=== PATIENT | male | born 1970 | race Hispanic/Latino ===

== ENCOUNTER 2019-03-24 20:58 | Emergency (ER) | payer OTHER | END 2019-03-24 21:27 | disposition home or self-care (01) | LOC: EDH 20:58 | DX: L40.9 Psoriasis, unspecified (principal); M19.90 Unspecified osteoarthritis, unspecified site; E07.9 Disorder of thyroid, unspecified | CPT/HCPCS: 99281 ==

== ENCOUNTER 2023-04-08 15:31 | Emergency (ER) | payer BC ==
[~2023-04-08] VITALS: Ht 177.8 cm; Wt 127.9 kg
[2023-04-08 16:02] VITALS: BP 140/84; PULSE 18; RESP 18
[2023-04-08] MEDS ORDERED: CLIN-141 PO (18:29)
[2023-04-08] MEDS ORDERED: LIDOCAINE HCL 1% 20 ML VIAL INJ SCH (18:30)
[2023-04-08] MEDS ORDERED: CLINDAMYCIN 150 MG CAP PO ONE (18:30)
== END 2023-04-08 19:40 | disposition home or self-care (01) ==
LOC: EDH 15:31
DX: L03.012 Cellulitis of left finger (principal); E11.9 Type 2 diabetes mellitus without complications; I10 Essential (primary) hypertension
CPT/HCPCS: 10060

== ENCOUNTER 2025-07-06 21:54 | Emergency (ER) | payer BC ==
[~2025-07-06] VITALS: Ht 177.8 cm; Wt 120.7 kg
[~2025-07-06 21:54] MED LIST: CLIN-141 PO
--- NOTE | 2025-07-06 22:52 | HMCIMG ---
EXAM: CT Abdomen and Pelvis Without IV contrast CLINICAL HISTORY: flank pain TECHNIQUE: Axial computed tomography images of the abdomen and pelvis without intravenous contrast. CONTRAST: No IV contrast. COMPARISON: None provided. FINDINGS: LUNG BASES: The lung bases appear clear. No pleural effusions are seen. LIVER: Unremarkable. GALLBLADDER AND BILE DUCTS: Gallbladder could not be seen possibly removed PANCREAS: Unremarkable. SPLEEN: Unremarkable. ADRENAL GLANDS: Unremarkable. KIDNEYS, URETERS, AND BLADDER: The kidneys appear within normal limits. There is no hydronephrosis or hydroureter. Punctate calculi within the left kidney. STOMACH AND BOWEL: Unremarkable appearance of the stomach and bowel. No evidence of bowel obstruction. No evidence suggesting enteritis or colitis. Diverticulosis of the descending and sigmoid colon. APPENDIX: No evidence of acute appendicitis on CT examination. PERITONEUM: No free fluid. No free air. LYMPH NODES: No lymphadenopathy is evident. REPRODUCTIVE: Unremarkable as visualized. VASCULATURE: No evidence of abdominal aortic aneurysm. BONES: No aggressive appearing osseous lesion. No acute osseous pathology evident. IMPRESSION: No acute intra-abdominal or pelvic abnormality. /[place]
[2025-07-06 22:53] LABS: APPEARANCE,URINE CLEAR (CLEAR); GLUCOSE, URINE (UA) 30 mg/dL (NEGATIVE); LEUKOCYTE ESTERASE ,URINE NEGATIVE Leu/uL (NEGATIVE); NITRATE,URINE NEGATIVE (NEGATIVE); OCCULT BLOOD,URINE NEGATIVE (NEGATIVE); SQUAMOUS EPITHELIAL CELL,UR RARE /HPF (0-2)
[2025-07-06 23:08] LABS: IMMATURE GRANULOCYTE ABSOLUTE 0.04 K/uL (0-1); NUCLEATED RED BLOOD CELLS 0.0 % (0.0-0.19); PLATELET COUNT (AUTO) 326 K/uL (130-400); RED BLOOD CELL COUNT(AUTO) 4.39 MIL/uL (4.50-6.20); RED CELL DISTRIBUTION WIDTH 13.2 % (11.0-15.5); WHITE BLOOD COUNT (AUTO) 7.9 K/uL (4.8-10.8)
[2025-07-06 23:15] LABS: CREATININE 0.9 mg/dL (0.5-1.3); GLOMERULAR FILTR. RATE CALC 102.0 mL/min (>90); GLUCOSE,RANDOM 209.0 mg/dL (70-105); SODIUM SERUM 139.0 mmol/L (136-145); UREA NITROGEN, BLOOD 20.0 mg/dL (7-18)
[2025-07-06] MEDS ORDERED: NYST15CR TP (23:27)
[2025-07-06] MEDS ORDERED: PRED20TA3 PO (23:27)
--- NOTE | 2025-07-06 23:28 | ERN ---
ED Note History of Present Illness Stated Complaint: C/O LOWER BACK PAIN W/ PAIN WHEN VOIDING Chief Complaint: Painful Urination Time Seen by MD: 21:58 Time Seen by Midlevel: 21:58 Dictation: The patient is a 54-year-old male with history of DM, htn, psoriasis, hypothyroid who presents to the emergency department with complains of painful urination and non traumatic bilateral flank pain onset 2 weeks ago. Patient also reports worsening erythema to his groin and scrotum. Reports he had erythema for years due to his psoriasis. Denies any fever. Allergies: Coded Allergies: aloe vera (Unverified Allergy, Unknown, 04/08/23) Home Meds Active Scripts Nystatin/Triamcin (Nystatin-Triamcinolone Cream) 100,000 Unit/Gram-0.1 % Crm, 1 APPL TP BID for 10 Days, #15 GM 0 Refills apply to affected area(s) Prov:NATALI RODRIGUEZ ANALYTICAL TECH 07/06/25 Prednisone (Prednisone) 20 Mg Tablet, 1 TAB PO BID for 5 Days, #10 TAB 0 Refills Prov:NATALI RODRIGUEZ ANALYTICAL TECH 07/06/25 Clindamycin HCl (Clindamycin HCl) 300 Mg Capsule, 1 CAP PO [id number] for 7 Days, #28 CAP 0 Refills Prov:DIMAS AMATO NP 04/08/23 Past Medical History Past Medical History: Arthritis, Diabetes-Type II, High Cholesterol, Hypertension, Hypothyroid Surgical History: Other Surgical History Other: ANKLE RN Note Reviewed/Agreed w/PFSH: Yes Review of System Dictation Constitutional: Negative for fever,chills, and weight loss Eyes: Negative for injury, pain,redness, and discharge ENT: Negative for injury,pain or swelling Cardiovascular: Negative for chest pain, palpitations, and edema Respiratory: Negative for shortness of breath, cough, and wheezing, Abdomen/GI: Negative for abdominal pain, nausea, vomiting, diarrhea, and constipation Back: Negative for injury and pain Positive for flank pain : Negative for injury, bleeding and discharge Positive for painful urination. MS/Extremity: Negative for injury and deformity Skin: Negative for rash, and discoloration Neuro: Negative for headache, weakness, numbness, tingling, and seizure Psych: Negative for suicide ideation, homicidal ideation, and hallucinations Initial Vital Sign VS Vital Signs Date Time Temp Pulse Resp B/P (MAP) Pulse Ox O2 Delivery O2 Flow Rate FiO2 07/06/25 21:56 97.3 98 20 140/74 98 Room Air 07/06/25 22:18 0 21 Physical Exam Dictation Vital Signs reviewed General Appearance: Alert, oriented x 3, no acute distress, well developed, nourished. Head and Face: non-traumatic. Eyes: PERRL, pink conjunctivas, eyelid no trauma, anterior chamber with arcus senilis. Ears: Pinnas intact and no signs of trauma or erythema ear canals clear and no discharge TM no erythema Nose: No discharge, no bleeding. Oropharynx: Mouth normal, tongue pink. pharynx clear,no erythema, tonsils no exudates, no abscesses noted, mucous membrane moist Neck: Supple, non-tender, no thyromegaly, no masses, no JVD, no bruits Breast:Deferred Chest:No tenderness, no crepitus, no paradoxical movement, no retractions Lungs:Clear, well-ventilated, symmetric, no rales, no wheezing, no rhonchi, no stridor, good breath sounds bilaterally Heart: Regular rate, regular rhythm, no murmur, no gallops Vascular: no peripheral edema, Abdomen: Soft, positive bowel sounds, nondistended, no guarding, nontender, no rebound, no masses no hepatomegaly, no splenomegaly, no Rojo's sign, no hernias. Rectal: Deferred Genital: Deferred Neurological: Normal speech, motor function intact, sensory function intact Musculoskeletal: Neck nontender, full range of motion, back nontender, full ra nge of motion, Extremities: nontender, full range of motion Skin: Color pink, dry, no turgor, no rash, no lacerations, no abrasions, no contusions.erythema and dry patches to groin, erythema to scrotum, no drainage Lymphatic: Deferred Results (Laboratory/Radiology) Laboratory/Radiology Laboratory Tests Test 07/06/25 20:08 07/06/25 22:15 Urine Color LIGHT-YELLOW (YELLOW) Urine Appearance CLEAR (CLEAR) Urine pH 5.0 (5.0-8.0) Urine Specific [place] 1.021 (1.001-1.031) Urine Protein NEGATIVE mg/dL (NEGATIVE) Urine Glucose (UA) 30 mg/dL (NEGATIVE) H Urine Ketones NEGATIVE mg/dL (NEGATIVE) Urine Occult Blood NEGATIVE (NEGATIVE) Urine Nitrate NEGATIVE (NEGATIVE) Urine Bilirubin NEGATIVE mg/dL (NEGATIVE) Urine Urobilinogen 0.2 mg/dL (0.2-1.0) Urine Leukocyte Esterase NEGATIVE Vicki/uL Urine RBC 0-1 /HPF (0-1) Urine WBC 0-1 /HPF (0-1) Urine Squamous Epithelial Cells RARE /HPF (0-2) Urine Bacteria None /HPF (None Seen) White Blood Count 7.9 K/uL (4.8-10.8) Red Blood Count 4.39 MIL/uL (4.50-6.20) L Hemoglobin 12.5 g/dL (14.0-18.0) L Hematocrit 38.0 % (42-54) L Mean Corpuscular Volume 86.6 fL (79-99) Mean Corpuscular Hemoglobin 28.5 pg (27.0-33.0) Mean Corpuscular Hemoglobin Concent 32.9 g/dL (32.0-36.0) Red Cell Distribution Width 13.2 % (11.0-15.5) Platelet Count 326 K/uL (130-400) Mean Platelet Volume 9.6 fL (7.5-10.5) Immature Granulocyte % (Auto) 0.5 % (0-1) Neutrophils (%) (Auto) 66.4 % (40.0-77.0) Lymphocytes (%) (Auto) 22.0 % (21.0-51.0) Monocytes (%) (Auto) 7.1 % (3.0-13.0) Eosinophils (%) (Auto) 3.4 % (0.0-8.0) Basophils (%) (Auto) 0.6 % (0.0-5.0) Neutrophils # (Auto) 5.2 K/uL (1.8-7.7) Lymphocytes # (Auto) 1.7 K/uL (1.0-4.8) Monocytes # (Auto) 0.6 K/uL (0.1-1.0) Eosinophils # (Auto) 0.27 K/uL (0.00-0.70) Basophils # (Auto) 0.05 K/uL (0.00-0.20) Absolute Immature Granulocyte (auto 0.04 K/uL (0-1) Nucleated Red Blood Cells 0.0 % (0.0-0.19) Sodium Level 139 mmol/L (136-145) Potassium Level 3.9 mmol/L (3.5-5.1) Chloride Level 103 mmol/L (101-111) Carbon Dioxide Level 30 mmol/L (21-32) Blood Urea Nitrogen 20 mg/dL (7-18) H Creatinine 0.9 mg/dL (0.5-1.3) Glomerular Filtration Rate Calc 102 mL/min (>90) Random Glucose 209 mg/dL (70-105) H Total Calcium 8.5 mg/dL (8.5-10.1) REASON: flank pain ORDERING PHYSICIAN: NATALI RODRIGUEZ PROCEDURE: ABD PEL WO - CT ABDOMEN/PELVIS W/O CONTRAST EXAM: CT Abdomen and Pelvis Without IV contrast CLINICAL HISTORY: flank pain TECHNIQUE: Axial computed tomography images of the abdomen and pelvis without intravenous contrast. CONTRAST: No IV contrast. COMPARISON: None provided. FINDINGS: LUNG BASES: The lung bases appear clear. No pleural effusions are seen. LIVER: Unremarkable. GALLBLADDER AND BILE DUCTS: Gallbladder could not be seen possibly removed PANCREAS: Unremarkable. SPLEEN: Unremarkable. ADRENAL GLANDS: Unremarkable. KIDNEYS, URETERS, AND BLADDER: The kidneys appear within normal limits. There is no hydronephrosis or hydroureter. Punctate calculi within the left kidney. STOMACH AND BOWEL: Unremarkable appearance of the stomach and bowel. No evidence of bowel obstruction. No evidence suggesting enteritis or colitis. Diverticulosis of the descending and sigmoid colon. APPENDIX: No evidence of acute appendicitis on CT examination. PERITONEUM: No free fluid. No free air. LYMPH NODES: No lymphadenopathy is evident. REPRODUCTIVE: Unremarkable as visualized. VASCULATURE: No evidence of abdominal aortic aneurysm. BONES: No aggressive appearing osseous lesion. No acute osseous pathology evident. IMPRESSION: No acute intra-abdominal or pelvic abnormality. /[facility] Labs Reviewed?: Yes ED Course ED Course Orders Procedure Category Date Status Time Cbc With Differential LAB 07/06/25 Complete 22:11 Basic Metabolic Panel LAB 07/06/25 Complete 22:11 Ct Abdomen/Pelvis W/O CT 07/06/25 Resulted Contrast 22:23 Ketorolac PHA 07/06/25 Complete Tromethamine 30mg/Ml 22:30 Urinalysis LAB 07/06/25 Complete W/Microscopic 20:08 Methylprednisolone PHA 07/07/25 In Process Succ 125mg (Solu-Medr 00:00 Current Medications Medications (Trade) Dose Ordered Sig/[place] Route PRN Reason Start Time Stop Time Status Last Admin Dose Admin Ketorolac Tromethamine (toRADol) 30 mg ONCE ONCE IM 07/06/25 22:30 07/06/25 22:31 DC 07/06/25 22:56 Methylprednisolone Sodium Succinate (Solu-medROL 125MG) 80 mg ONCE ONCE IVP 07/07/25 00:00 07/07/25 00:01 07/06/25 23:49 Vital Signs Date Time Temp Pulse Resp B/P (MAP) Pulse Ox O2 Delivery O2 Flow Rate FiO2 07/06/25 22:18 98.8 76 18 144/84 96 Room Air* 0 21 07/06/25 21:56 97.3 98 20 140/74 98 Room Air Medical Decision Making MDM The patient is a 54-year-old male with history of DM, htn, psoriasis, hypothyroid who presents to the emergency department with complains of painful urination and non traumatic bilateral flank pain onset 2 weeks ago. Patient also reports worsening erythema to his groin and scrotum. Reports he had erythema for years due to his psoriasis. Denies any fever. CBC showed no leukocytosis, mild normocytic anemia, chemistry showed glucose of two nine, normal renal function, urinalysis negative for leukocyte esterase and nitrites. CT abdomen showed the puncture calculi in the left kidney. On physical exam patient has erythema to scrotum but no drainage. Patient also has erythema to groin with dryness. He reports that hes had it for year because he has psoriasis but it if getting worst. Does not follow with specialist. Patient will be discharge to follow up with and given steroids and cream. Patient otherwise in no acute distress, nontoxic appearance, stable vital signs. Differential diagnosis: UTI, pyelonephritis, chronic kidney injury, excoriation Need for hospitalization: Patient does not meet criteria for hospitalization. There are no social concerns with this patient. DX & DISP Disposition: Discharge Departure Impression: Primary Impression: Rash of groin Additional Impressions: Flank pain, Scrotal rash Condition: Stable Scripts Nystatin/Triamcin (Nystatin-Triamcinolone Cream) 100,000 Unit/Gram-0.1 % Crm 1 APPL TP BID for 10 Days, #15 GM 0 Refills apply to affected area(s) Prov: NATALI RODRIGUEZ RANDALL 07/06/25 Prednisone (Prednisone) 20 Mg Tablet 1 TAB PO BID for 5 Days, #10 TAB 0 Refills Prov: NATALI RODRIGUEZ RNADALL 07/06/25 Additional Instructions: Bandar laboratorios y tomografia no enseno nada emergente. Le vamos a recetar medicamentos para que se coloque en el area afectada. tome bandar medicamentos y siga de segimiento con chaudhary doctor de cabezera. Tambien le dimos kelly referencia a un especialista llamado . Able para hacer kelly marilyn. Si algo empeora regrese a emergencia. Referrals: HENOK MOLINA MD (PCP) JOEY OVERTON MD Time of Disposition: 23:46 I have examined patient, & reviewed all documents, & agreed W/ the Diagnosis, and Plan I performed a substantive portion of the visit. I have reviewed and personally made and approve the management plan that is documented in the notes by myself with JARED/resident. I acknowledged full responsibility for the patient's management plan. NATALI RODRIGUEZ RANDALL Jul 06, 2025 23:27 RONAK LERMA DO Jul 06, 2025 23:57
[2025-07-07 00:20] VITALS: BP 132/82; PULSE 72; RESP 18; TEMP 98.6; O2SAT 98
== END 2025-07-07 00:21 | disposition home or self-care (01) ==
LOC: EDH 21:54
DX: R10.A3 Flank pain, bilateral (principal); M19.90 Unspecified osteoarthritis, unspecified site; I10 Essential (primary) hypertension; E78.00 Pure hypercholesterolemia, unspecified; E11.9 Type 2 diabetes mellitus without complications; E03.9 Hypothyroidism, unspecified; Z79.52 Long term (current) use of systemic steroids; R21 Rash and other nonspecific skin eruption
CPT/HCPCS: 99284; 74176; 96374; 80048; 85025; 81001; 36415; 96372; J1885; J2919